=== PATIENT | male | born 1935 | race Caucasian/White ===

== ENCOUNTER 2017-01-13 20:01 | Emergency (ER) | payer OTHER ==
--- NOTE | 2017-01-13 20:02 | EDPHY ---
H & P HPI/ROS: HPI CHIEF COMPLAINT: Numbness and tingling all over HISTORY OF PRESENT ILLNESS: This patient 81-year-old male significant past medical history for coronary artery disease with CABG, presents emergency room by EMS from a show this evening. Patient states that he had if you shots of liquor he states approximately 3 oz. He states he thought that his legs were asleep. Patient reports that his legs felt heavy and were tingling all over and then he developed tingling in his arms. States he got up to walk and had a very unsteady gait. No trouble with speech no trouble with vision denies neck pain chest pain shortness of breath. Denies headache. Denies weakness on 1 side further than the other. 911 was called due to his unsteady gait. They had a negative stroke scale assessment in route. Upon arrival to the emergency room I did Greet him in ER room 16. States he is feeling much better. The numbness and tingling in all of his extremities have resolved. He thought maybe the alcohol. He denies chest pain shortness of breath numbness or tingling at this time. However once we walked him he does have somewhat of a unsteady gait. Past Medical History: Coronary artery disease with CABG, hypertension, hyperlipidemia Past Surgical History: CABG Social History: Daily alcohol use 1 shot before bed. Family History: Noncontributory ROS REVIEW OF SYSTEMS: A comprehensive 10 point review of systems is otherwise negative aside from elements mentioned in the history of present illness. Exam Constitutional appears well nontoxic, triage nursing summary reviewed, vital signs reviewed, awake/alert. Eyes normal conjunctivae and sclera, EOMI, PERRLA. HENT normal inspection, atraumatic, moist mucus membranes, no epistaxis, neck supple/ no meningismus, no raccoon eyes. Respiratory clear to auscultation bilaterally, normal breath sounds, no respiratory distress, no wheezing. Cardiovascular rate normal, regular rhythm, no murmur, no edema, distal pulses normal. Gastrointestinal soft, non-tender, no rebound, no guarding, normal bowel sounds, no distension, no pulsatile mass. Genitourinary no CVA tenderness. Musculoskeletal no midline vertebral tenderness, full range of motion, no calf swelling, no tenderness of extremities, no meningismus, good pulses, neurovascularly intact. Skin pink, warm, & dry, no rash, skin atraumatic. Neurologic unremarkable neurological exam, cranial nerves are all intact, no focal weakness, awake, alert and oriented x 3, AAOx3, moves all 4 extremities equally, motor intact, sensory intact, CN II-XII intact, normal cerebellar, normal vision, normal speech. However when walking he does have an unsteady a wide-based gait. Psychiatric normal mood/affect. Heme/Lymph/Immune no lymphadenopathy. Differential Diagnosis: Includes but is not limited to in a particular order, electrolyte disturbance, alcohol intoxication, dehydration, anxiety attack, panic attack, TIA, CVA, intracranial bleed, ACS Medical Decision Making: Plan for this patient check blood work, IV establishment IV fluid bolus, check alcohol level, CT head without contrast, chest x-ray, EKG, troponin. Re-evaluate. Re-evaluation: CT scan of the head w/o. The results of the study are negative for acute bleed or stroke. The study was read by Dr. Zhang. I viewed the images myself on the PACS system. EKG interpretation by me on record in [employer] system. Impression and time of EKG 2026, sinus rhythm rate of 58 nonspecific intraventricular conduction delay present. T-wave abnormality noted V1 V2 V3. T-wave flattening in V4 V5 V6. No ST elevation. No ST depression. No old EKG to compare this to. ED x-ray chest One View: CABG Wires present. Otherwise no overt failure. Lung todd clear. No significant cardiomegaly. 2214: I did re-evaluate this patient at this time. He is requesting be discharged home. He tells me feels 100% better. Denies any chest pain shortness of breath, denies headache, neck pain, dizziness, back pain, abdominal pain. He states his gait is back to normal. He ambulated well throughout the emergency room with a steady gait. No ataxia. Thinks it may have been alcohol that caused no feel funny earlier. He did recently started a new medication called Norvasc. I did offer him admission overnight to the hospital for observation however he is adamant about going home. Here in the emergency room is workup for numbness and tingling throughout his entire extremities is been unremarkable. He has a normal troponin and EKG does not show significant ischemia. Blood work is reassuring. His CT scan of his head that is unremarkable. I will allow go home at his request. His vital signs are stable. He is feeling much better. Ambulated well. No complaints. Requesting discharge. Does understand return if he develops syncope, chest pain, shortness of breath or any further symptoms or questions or concerns. Source: Patient, EMS Constitutional: Initial Vital Signs Temperature (C) 36.8 C 01/13/17 20:11 Heart Rate 58 L 01/13/17 20:11 Respiratory Rate 16 01/13/17 20:11 Blood Pressure 141/75 H 01/13/17 20:11 O2 Sat (%) 92 01/13/17 20:11 O2 Delivery Mode Room Air Allergies/Adverse Reactions: No Known Allergies Allergy (Unverified 01/13/17 20:13) Home Medications: Medication Instructions Recorded Amlodipine Besylate 01/13/17 Lisinopril 01/13/17 Metoprolol Tartrate 01/13/17 Verapamil 01/13/17 Medical Decision Making - Data Points Laboratory Results: Laboratory Results 01/13/17 20:00 01/13/17 20:00 01/13/17 01/13/17 01/13/17 21:00 20:00 20:00 WBC RBC Hgb Hct MCV MCH MCHC RDW Plt Count MPV Neut % (Auto) Lymph % (Auto) [place] % (Auto) Eos % (Auto) Baso % (Auto) Nucleat RBC Rel Count Absolute Neuts (auto) Absolute Lymphs (auto) Absolute Monos (auto) Absolute Eos (auto) Absolute Basos (auto) Absolute Nucleated RBC Immature Gran % Immature Gran # PT 12.9 SEC SEC (12.0-15.0) INR 0.98 (0.83-1.16) APTT 32.6 SEC SEC (23.0-38.0) Sodium 139 mEq/L mEq/L (134-144) Potassium 3.9 mEq/L mEq/L (3.5-5.2) Chloride 102 mEq/L mEq/L (97-110) Carbon Dioxide 22 mEq/l mEq/l (22-31) Anion Gap 15 mEq/L mEq/L (8-16) BUN 20 mg/dL mg/dL (7-23) Creatinine 1.0 mg/dL mg/dL (0.7-1.3) Estimated GFR > 60 Glucose 157 mg/dL H mg/dL (70-100) Calcium 9.9 mg/dL mg/dL (8.5-10.4) Magnesium 1.8 mg/dL mg/dL (1.6-2.3) Total Bilirubin 0.5 mg/dL mg/dL (0.1-1.4) Conjugated Bilirubin 0.2 mg/dL mg/dL (0.0-0.5) Unconjugated Bilirubin 0.3 mg/dL mg/dL (0.0-1.1) AST 27 IU/L IU/L (17-59) ALT 30 IU/L IU/L (21-72) Alkaline Phosphatase 63 IU/L IU/L (38-126) Creatine Kinase 54 IU/L IU/L (0-224) CK-MB (CK-2) Fraction 1.64 ng/mL ng/mL (0.00-3.19) Troponin I < 0.012 ng/mL ng/mL (0.000-0.034) NT-Pro-B Natriuret Pep 1550 pg/mL H pg/mL (0-450) Total Protein 7.2 g/dL g/dL (6.3-8.2) Albumin 4.2 g/dL g/dL (3.5-5.0) Lipase 253 IU/L IU/L (23-300) Urine Color YELLOW Urine Appearance CLEAR Urine pH 6.0 (5.0-7.5) Ur Specific [place] 1.016 (1.002-1.030) Urine Protein NEGATIVE (NEGATIVE) Urine Ketones NEGATIVE (NEGATIVE) Urine Blood 2+ H (NEGATIVE) Urine Nitrate NEGATIVE (NEGATIVE) Urine Bilirubin NEGATIVE (NEGATIVE) Urine Urobilinogen NEGATIVE EU EU (0.2-1.0) Ur Leukocyte Esterase NEGATIVE (NEGATIVE) Urine RBC 5-10 /hpf H /hpf (0-3) Urine WBC 1-3 /hpf /hpf (0-3) Ur Epithelial Cells NONE SEEN /lpf /lpf (NONE-1+) Urine Glucose NEGATIVE (NEGATIVE) Ethyl Alcohol 14 mg/dL H mg/dL (0-10) 01/13/17 20:00 WBC 11.77 10^3/uL H 10^3/uL (3.80-9.50) RBC 4.36 10^6/uL L 10^6/uL (4.40-6.38) Hgb 14.1 g/dL g/dL (13.7-17.5) Hct 41.3 % % (40.0-51.0) MCV 94.7 fL fL (81.5-99.8) MCH 32.3 pg pg (27.9-34.1) MCHC 34.1 g/dL g/dL (32.4-36.7) RDW 13.4 % % (11.5-15.2) Plt Count 266 10^3/uL 10^3/uL (150-400) MPV 9.3 fL fL (8.7-11.7) Neut % (Auto) 61.1 % % (39.3-74.2) Lymph % (Auto) 26.7 % % (15.0-45.0) [place] % (Auto) 6.0 % % (4.5-13.0) Eos % (Auto) 5.4 % % (0.6-7.6) Baso % (Auto) 0.5 % % (0.3-1.7) Nucleat RBC Rel Count 0.0 % % (0.0-0.2) Absolute Neuts (auto) 7.20 10^3/uL H 10^3/uL (1.70-6.50) Absolute Lymphs (auto) 3.14 10^3/uL H 10^3/uL (1.00-3.00) Absolute Monos (auto) 0.71 10^3/uL 10^3/uL (0.30-0.80) Absolute Eos (auto) 0.63 10^3/uL H 10^3/uL (0.03-0.40) Absolute Basos (auto) 0.06 10^3/uL 10^3/uL (0.02-0.10) Absolute Nucleated RBC 0.00 10^3/uL 10^3/uL (0-0.01) Immature Gran % 0.3 % % (0.0-1.1) Immature Gran # 0.03 10^3/uL 10^3/uL (0.00-0.10) PT INR APTT Sodium Potassium Chloride Carbon Dioxide Anion Gap BUN Creatinine Estimated GFR Glucose Calcium Magnesium Total Bilirubin Conjugated Bilirubin Unconjugated Bilirubin AST ALT Alkaline Phosphatase Creatine Kinase CK-MB (CK-2) Fraction Troponin I NT-Pro-B Natriuret Pep Total Protein Albumin Lipase Urine Color Urine Appearance Urine pH Ur Specific [place] Urine Protein Urine Ketones Urine Blood Urine Nitrate Urine Bilirubin Urine Urobilinogen Ur Leukocyte Esterase Urine RBC Urine WBC Ur Epithelial Cells Urine Glucose Ethyl Alcohol Medications Given: Discontinued Medications Sodium Chloride (Ns) 1,000 mls @ 0 mls/hr IV EDNOW ONE; Wide Open PRN Reason: Protocol Stop: 01/13/17 20:12 Last Admin: 01/13/17 20:25 Dose: 1,000 mls Departure - Departure Disposition: Home, Routine, Self-Care Clinical Impression: Lightheaded Condition: Good Instructions: Near Syncope (ED), Lightheadedness (ED) Additional Instructions: 1.Return emergency room immediately if he develops any worsening symptoms questions or concerns includes chest pain, passing out vomiting or you feel ill. 2. Stay well-hydrated drink lots of fluids. Referrals: Patient,NotPresent [Unknown] - As per Instructions
[2017-01-13] MEDS ORDERED: NS 1,000 ML IV ONE (20:11)
[2017-01-13 20:20] LABS: % IMMATURE GRANULYOCYTES 0.3 % (0.0-1.1); ABSOLUTE IMMATURE GRANULOCYTES 0.03 10^3/uL (0.00-0.10); ADD DIFF? NO; ADD MORPH? NO; ADD SCAN? NO; ATYPICAL LYMPHOCYTE FLAG 10 (0-99); FRAGMENT RBC FLAG 0 (0-99); HEMATOCRIT 41.3 % (40.0-51.0); HEMOGLOBIN 14.1 g/dL (13.7-17.5); LEFT SHIFT FLG 0 (0-99); LIPEMIA HEMOLYSIS FLAG 90 (0-99); MEAN CELL HEMOGLOBIN 32.3 pg (27.9-34.1); MEAN CELL HEMOGLOBIN CONCENTR. 34.1 g/dL (32.4-36.7); MEAN CELL VOLUME 94.7 fL (81.5-99.8); MEAN PLATELET VOLUME 9.3 fL (8.7-11.7); PLATELET CLUMPS FLAG 0 (0-99); PLATELET COUNT 266 10^3/uL (150-400); RED BLOOD CELL COUNT 4.36 10^6/uL (4.40-6.38); RED CELL DISTRIBUTION WIDTH 13.4 % (11.5-15.2)
[2017-01-13 20:27] LABS: ALANINE AMINOTRANSFERASE 30 IU/L (21-72); ALBUMIN 4.2 g/dL (3.5-5.0); ALKALINE PHOSPHATASE 63 IU/L (38-126); ANION GAP 15 mEq/L (8-16); ASPARTATE AMINOTRANSFERASE 27 IU/L (17-59); BILIRUBIN,TOTAL 0.5 mg/dL (0.1-1.4); BILIRUBIN-CONJUGATED 0.2 mg/dL (0.0-0.5); BILIRUBIN-UNCONJUGATED 0.3 mg/dL (0.0-1.1); CALCIUM 9.9 mg/dL (8.5-10.4); CARBON DIOXIDE 22 mEq/l (22-31); CHLORIDE 102 mEq/L (97-110); ETHANOL SERUM 14 mg/dL (0-10); GLOMERULAR FILTRATION RATE > 60; GLUCOSE 157 mg/dL (70-100); MAGNESIUM 1.8 mg/dL (1.6-2.3); POTASSIUM 3.9 mEq/L (3.5-5.2); SODIUM 139 mEq/L (134-144); TOTAL PROTEIN 7.2 g/dL (6.3-8.2)
--- NOTE | 2017-01-13 20:29 | CPEKG ---
Heart Rate: 58 RR Interval: 1034 P-R Interval: 180 QRSD Interval: 112 QT Interval: 480 QTC Interval: 472 P [place]: 14 QRS [place]: -23 T Wave [place]: -8 EKG Severity - ABNORMAL ECG - EKG Impression: SINUS RHYTHM EKG Impression: NONSPECIFIC INTRAVENTRICULAR CONDUCTION DELAY Electronically Signed By: Woody Jones 15-Jan-2017 08:15:52
[2017-01-13 20:31] LABS: INR 0.98 (0.83-1.16); PROTIME(PATIENT) 12.9 SEC (12.0-15.0)
[2017-01-13 20:32] LABS: APTT 32.6 SEC (23.0-38.0)
[2017-01-13 20:39] LABS: CREATINE KINASE-MB FRACTION 1.64 ng/mL (0.00-3.19); TROPONIN I < 0.012 ng/mL (0.000-0.034)
[2017-01-13 21:20] LABS: COLOR YELLOW; LEUKOCYTE ESTERASE,URINE NEGATIVE (NEGATIVE); NITRITE,URINE NEGATIVE (NEGATIVE)
[2017-01-13 22:25] VITALS: BP 124/67; PULSE 65; RESP 16; TEMP 97.9; O2SAT 97
== END 2017-01-13 22:25 | disposition home or self-care (01) ==
LOC: EDUNIT#
DX: R42 Dizziness and giddiness (principal); I25.810 Atherosclerosis of coronary artery bypass graft(s) without angina pectoris; I10 Essential (primary) hypertension; E86.9 Volume depletion, unspecified
CPT/HCPCS: G0480